=== PATIENT | male | born 1955 | race American Indian/Alaskan Native ===

== ENCOUNTER 2019-09-17 19:54 | Emergency (ER) | payer MEDICARE ==
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
[2019-09-18] MEDS ORDERED: HYDROcodone/ACETAMINOPHEN 5-325 MG TAB PO ONE (00:41)
[2019-09-18] MEDS ORDERED: LIDOCAINE-MPF (1%) 10 MG/1 ML VIAL 5 ML INFILTRATI ONE (00:42)
[2019-09-18] MEDS ORDERED: cephALEXin 500 MG CAP PO ONE (00:42)
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
[2019-09-18 02:21] VITALS: BP 155/88
== END 2019-09-18 02:21 | disposition home or self-care (01) ==
LOC: ED 19:54
DX: L03.011 Cellulitis of right finger (principal); E11.9 Type 2 diabetes mellitus without complications; Z98.890 Other specified postprocedural states; Z79.899 Other long term (current) drug therapy